=== PATIENT | female | born 2005 | race Asian ===

== ENCOUNTER 2024-01-25 18:11 | Emergency (ER) | payer OTHER, SELFPAY ==
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
[2024-01-25 18:20] VITALS: BP 114/84; PULSE 85; RESP 16; TEMP 36.6; O2SAT 99
[2024-01-25 19:13] VITALS: RESP 19; O2SAT 99
--- NOTE | 2024-01-25 19:24 | PC.NURSE ---
Pt states she will need a paper script if she were to need medications due to request of her medications being sent to pharmacy in [place].
[2024-01-25 20:29] VITALS: BP 116/72; PULSE 86; RESP 18; O2SAT 98
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
[2024-01-25 21:56] LABS: BEDSIDEPREGUCG Negative
== END 2024-01-25 22:22 | disposition home or self-care (01) ==
PROVIDERS: Emergency Provider Student in an Organized Health Care Education/Training Program
DX: S02.2XXA Fracture of nasal bones, initial encounter for closed fracture (principal); Y04.2XXA Assault by strike against or bumped into by another person, initial encounter
CPT/HCPCS: 70486; 81025; 99284

== ENCOUNTER 2024-03-17 01:15 | Emergency (ER) | payer OTHER, SELFPAY ==
[2024-03-17] VITALS (59 sets, daily range): BP systolic 90–125; BP diastolic 54–90; PULSE 61–161; RESP 13–26; TEMP 36.6; O2SAT 97–100
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
--- NOTE | ~2024-03-17 | CT_ITS ---
EXAMINATION: CT brain wo con DATE: 03/17/2024 09:21 INDICATION: Altered mental status TECHNIQUE: Computed tomography (CT) of the head was performed without intravenous contrast. Sagittal and coronal reconstructions were performed. The mA was adjusted according to patient size. Iterative reconstruction technique was employed. The dose-length product was 529.67 mGy-cm. COMPARISON: None FINDINGS: No acute intracranial hemorrhage, acute infarction or abnormal extra axial fluid collection. Ventricl es are normal and symmetric. No mass/mass effect. Bilateral mastoids are hypopneumatized and clear. T he orbitsand paranasal sinuses are normal. IMPRESSION: 1. Normal brain. Reviewed, dictated and finalized at location B. IMPRESSION: 1. Normal brain.
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
--- NOTE | 2024-03-17 02:00 | PC.NURSE ---
Pt uncooperative with VS. Unable to obtain BP at this time d/t pt constantly pulling off BP cuff. ERP aware.
--- NOTE | 2024-03-17 02:31 | PC.NURSE ---
Pt uncooperative while trying to obtain vital signs and will not answer any questions. This RN, ED security, & Jesús (tech) at bedside. ED Charge notified.
[2024-03-17] MEDS: LORazepam INJ (*CRX) 2 MG/ML VIAL IM ×2 (02:53→04:21)
[2024-03-17] MEDS: HALOPERIDOL LACTATE 5 MG/ML VIAL IM ×2 (02:54→03:14)
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
--- NOTE | 2024-03-17 03:13 | PC.NURSE ---
Pt given a second 5mg IM dose of Haldol per EDP Dr. Jeff EUCEDA
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
[2024-03-17 04:32] LABS: Basophils Absolute Auto 0.1 K/mm3 (0.0-0.1); Basophils Percent Auto 0.8 % (0.2-1.2); Eosinophils Percent Auto 0.2 % (0-4.4); Hemoglobin 12.9 g/dL (12.0-15.0); Immature Granulocyte Absolute 0.02 K/mm3 (0.00-0.031); Immature Granulocyte Percent A 0.2 % (0-0.5); Lymphocytes Absolute Auto 3.08 K/mm3 (0.9-3.2); Lymphocytes Percent Auto 36.7 % (18.3-44.2); Mean Corpuscular HGB Conc 33.1 g/dl (32-36); Mean Corpuscular Hemoglobin 31.2 pg (26-34); Mean Corpuscular Volume 94.2 fl (80-100); Mean Platelet Volume 9.6 fl (7.4-10.4); Monocytes Absolute Auto 0.6 K/mm3 (0.1-0.6); Monocytes Percent Auto 6.8 % (2.6-8.5); Neutrophils Absolute Auto 4.6 K/mm3 (1.3-6.7); Neutrophils Percent Auto 55.3 % (45.5-73.1); Platelet Count Result 196 k/mm3 (150-375); Red Blood Count 4.14 M/mm3 (4.2-5.4); White Blood Count 8.4 K/mm3 (4.5-10.0)
[2024-03-17 04:41] LABS: INR 1.1; Prothrombin Time 14.8 Seconds (11.1-14.7)
[2024-03-17 04:42] LABS: Alkaline Phosphatase 46 U/L (45-116); Anion Gap 19 mmol/L (4-12); Aspartate Amino Transferase 29 U/L (14-36); Bilirubin,Total 0.8 mg/dL (0.2-1.3); Blood Urea Nitrogen 6 mg/dL (8-21); Calcium 9.6 mg/dL (8.9-10.7); Carbon Dioxide 19 mmol/L (22-30); Chloride 102 mmol/L (98-107); Estimated Glomerular Filt Rate > 60; Glucose 100 mg/dL (65-110); Potassium 3.5 mmol/L (3.4-5.0); Sodium 140 mmol/L (134-143)
[2024-03-17 04:43] LABS: Partial Thromboplastin Time 30.3 Seconds (22.3-36.8)
[2024-03-17 04:50] LABS: Alanine Aminotransferase 18 U/L (6-35)
[2024-03-17] MEDS: SODIUM CHLORIDE 0.9% IV 1,000 ML 999 ML IV CONT ×2 (04:53→07:27)
[2024-03-17 06:08] LABS: Acetaminophen < 10 ug/mL (10-30); Ethanol < 10 mg/dL (<10); Salicylate < 1.0 mg/dL (2-20)
[2024-03-17 06:42] LABS: Hepatitis B Surface Antigen Negative (Negative)
[2024-03-17 06:59] LABS: HIV 1/2 Ab P24 Ag Result Negative (Negative); Hepatitis C Virus Antibody Negative (Negative)
[2024-03-17 07:17] LABS: Beta HCG Quantitative < 2.39 mIU/ML
[2024-03-17] MEDS: LORazepam INJ (*CRX) 2 MG/ML VIAL 1 MG IV PUSH (07:23)
[2024-03-17] MEDS: HALOPERIDOL LACTATE 5 MG/ML VIAL 2.5 MG IV PUSH (07:23)
--- NOTE | 2024-03-17 09:25 | ECG_ITS ---
Test Date: 2024-03-17 11:35:50 Measurements Intervals [place] Rate: 74 P: 38 CO: 147 QRS: 39 QRSD: 86 T: 33 QT: 334 QTc: 371 Interpretive Statements SINUS RHYTHM WITH SINUS ARRHYTHMIA NORMAL ECG No previous ECG available for comparison Electronically Signed On 03-17-2024 18:37:48 CDT by Dioni Mccray D.O.
--- NOTE | 2024-03-17 09:30 | PCRCNOTE ---
DIFFICULT STICK, ABG TIME MAY BE LATE.
[2024-03-17] MEDS: LACTATED RINGERS 1,000 ML 999 ML IV CONT ×2 (09:46→11:32)
[2024-03-17 09:50] LABS: Fractional Inspired Oxygen 21 %; PCO2 VBG 33.8 mmHg (42.0-48.0); PO2 VBG 48.2 mmHg (35.0-45.0); pH VBG 7.391 (7.300-7.400)
[2024-03-17 09:51] LABS: Device ROOM AIR
[2024-03-17 10:12] LABS: Anion Gap 9 mmol/L (4-12); Blood Urea Nitrogen 4 mg/dL (8-21); Calcium 8.6 mg/dL (8.9-10.7); Carbon Dioxide 23 mmol/L (22-30); Chloride 109 mmol/L (98-107); Estimated Glomerular Filt Rate > 60; Glucose 82 mg/dL (65-110); Lactic Acid Reflex 0.7 mmol/L (0.7-2.0); Potassium 4.1 mmol/L (3.4-5.0); Sodium 141 mmol/L (134-143)
[2024-03-17 10:17] LABS: Beta-Hydroxybutyrate/Acetoacetate 0.33 mmol/L (0.02-0.27)
[2024-03-17 10:36] LABS: Influenza A QL RT-PCR Negative (Negative); Influenza B QL RT-PCR Negative (Negative); RSV RNA, RT-PCR Negative (Negative); SARS-CoV-2 RNA PCR Negative (Negative)
--- NOTE | 2024-03-17 11:30 | PC.NURSE ---
Spoke with [place] poison control , Tom, states pt would have had symptoms already. Just observe. Get UDS. Case # [id number]
[2024-03-17 11:50] LABS: Add Urine Microscopic? NO; Appearance Urine Clear (Clear); Bilirubin Urine Negative (Negative); Blood Urine Negative (Negative); Color Urine Yellow (Yellow); Glucose Urine UA Negative (Negative); Ketones Urine Trace mg/dL (Negative); Leukocyte Esterase Ur Negative LEU/UL (Negative); Nitrate Urine Negative (Negative); Protein Urine Negative (Negative); Specific Grav Ur > 1.045 (1.001-1.035); Urobilinogen Urine 0.2 mg/dL (<2.0)
[2024-03-17 12:04] LABS: Amphetamine Screen Urine Negative (Negative); Barbiturate Screen Urine Negative (Negative); Benzodiazepines Screen Urine Negative (Negative); Cannabinoid Screen Urine Positive (Negative); Cocaine Screen Urine Negative (Negative); Methadone Screen Urine Negative (Negative); Opiate Screen Urine Negative (Negative); Phencyclidine Screen Urine Negative (Negative)
--- NOTE | 2024-03-17 13:43 | PC.NURSE ---
[place] Poison control states case is closed due to pt asymptomatic
--- NOTE | 2024-03-17 23:16 | PC.NURSE ---
Vital signs obtained on patient. patient sat up, asked what time it was, and went back to sleep.
--- NOTE | 2024-03-17 23:39 | PC.NURSE ---
Patient woke up, was able to have a conversation, was a/o x3 but was unable to stay awake and was falling asleep during conversation
[2024-03-18 00:16] VITALS: BP 91/61; PULSE 102; RESP 20
--- NOTE | 2024-03-18 00:43 | PC.NURSE ---
patient is awake, alert, and watching tv at this time. patient is tearful and having a conversation with scale shooter Nalini
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
[2024-03-18 01:01] VITALS: BP 109/71; PULSE 96; RESP 17
--- NOTE | 2024-03-18 01:18 | PC.NURSE ---
Spoke with Poison Control again in light of the new medication information. States that Cyclobenzaprine peak is 4-6 hours, but that may be extended d/t anticolenergic effect with overdose but at this point with pt axox3 and seeminly back to baseline, pt likely is safe for dispo. Case #[id number]
--- NOTE | 2024-03-18 01:20 | PC.NURSE ---
Crisis notified pt is awake and able to be evaluated.
[2024-03-18 01:46] VITALS: BP 107/71; PULSE 87; RESP 17; O2SAT 98
--- NOTE | 2024-03-18 05:13 | PC.NURSE ---
Michelle with [facility] states they will not be accepting.
[2024-03-18 10:24] VITALS: BP 103/60; PULSE 86; RESP 20; TEMP 36.7; O2SAT 99
--- NOTE | 2024-03-18 10:55 | PC.NURSE ---
Pt admit to [facility] room 5334-B, Admitting MD [facility], report called to Katie ZAVALA at [phone]
--- NOTE | 2024-03-18 11:35 | PC.NURSE ---
All of Pt belonging's including earrings and neckless given to pt's mom.
[2024-03-18 13:00] VITALS: BP 106/72; PULSE 99; RESP 16; O2SAT 100
== END 2024-03-18 13:00 ==
PROVIDERS: Emergency Medicine; Student in an Organized Health Care Education/Training Program; Emergency Provider Emergency Medicine
DX: T50.902A Poisoning by unspecified drugs, medicaments and biological substances, intentional self-harm, initial encounter (principal); R41.82 Altered mental status, unspecified; Z20.822 Contact with and (suspected) exposure to COVID-19
CPT/HCPCS: 36415; 70450; 71260; 72125; 74177; 80048; 80053; 80307; 81003; 82010; 82803; 83605; 84443; 84702; 85025; 85610; 85730; 86703; 86803; 87340; 87637; 93005; 96361; 96372; 96374; 96375; 99285; G0432; J1630; J2060; J7030; J7120; Q9967